=== PATIENT | male | born 1985 | race Caucasian/White ===

== ENCOUNTER 2020-03-12 20:18 | Inpatient (IN) | payer BC ==
[2020-03-12 20:37] VITALS: BMI 25.0
[2020-03-12] MEDS ORDERED: ACETAMINOPHEN 325 MG TABLET (FP) PO ONE (22:07)
[2020-03-12 22:33] LABS: BASO % 0.2 % (0-2.0); EOS % 0.3 % (0-4.5); HEMATOCRIT 44.3 % (35.4-49); HEMOGLOBIN 14.8 GM/dL (11.7-16.9); LYMPH % 6.5 % (8-40); MCH 27.2 pg (25.7-33.7); MCHC 33.3 g/dl (32.0-35.9); MEAN CELL VOLUME 81.6 fl (80-96); MEAN PLT VOLUME 8.7 fl (7.5-11.1); MONO % 4.8 % (3.8-10.2); NEUT % 88.2 % (42.8-82.8); PLATELET COUNT 265 K/MM3 (134-434); RBC 5.43 M/mm3 (4.00-5.60); RDW 13.2 % (11.9-15.9); WHITE BLOOD COUNT 15.2 K/mm3 (4.0-10.0)
[2020-03-12 22:35] LABS: URINE APPEARANCE CLEAR; URINE BILIRUBIN NEGATIVE (NEGATIVE); URINE COLOR YELLOW; URINE GLUCOSE (UA) NEGATIVE (NEGATIVE); URINE KETONE NEGATIVE (NEGATIVE); URINE LEUK ESTERASE NEGATIVE (NEGATIVE); URINE NITRITE NEGATIVE (NEGATIVE); URINE PROTEIN NEGATIVE (NEGATIVE)
[2020-03-12 22:44] LABS: INR 1.08 (0.83-1.09); PROTHROMBIN TIME (PATIENT) 13.2 SEC (9.7-13.0)
[2020-03-12 22:46] LABS: ACTIVATED PTT 28.6 SECONDS (25.2-36.5)
[2020-03-12 22:53] LABS: POTASSIUM 4.2 mmol/L (3.5-5.1)
[2020-03-12 22:55] LABS: ALBUMIN 4.5 g/dl (3.4-5.0); BLOOD UREA NITROGEN 14.5 mg/dL (7-18); CALCIUM 9.2 mg/dL (8.5-10.1)
[2020-03-12 22:59] LABS: CREATININE 0.9 mg/dL (0.55-1.3)
[2020-03-12 23:00] LABS: BILIRUBIN,TOTAL 0.8 mg/dL (0.2-1); TOT PROT 8.3 g/dl (6.4-8.2)
[2020-03-13] MEDS ORDERED: PIPERACILLIN/TAZOB 3.375 GM 3.375 GM in DEXTROSE 5%-WATER - 50 ML IVPB ONE (00:07)
[2020-03-13] MEDS ORDERED: PIPERACILLIN/TAZOB 3.375 GM 3.375 GM/50 ML BAG IVPB ONE (00:12)
[2020-03-13] MEDS ORDERED: LACTATED RINGERS SOLUTION 1,000 ML/1,000 ML INFUS.BAG IV SCH (02:30)
[2020-03-13 06:41] LABS: BASO % 0.3 % (0-2.0); EOS % 1.6 % (0-4.5); HEMATOCRIT 41.9 % (35.4-49); HEMOGLOBIN 14.3 GM/dL (11.7-16.9); LYMPH % 24.9 % (8-40); MCH 27.4 pg (25.7-33.7); MEAN CELL VOLUME 80.6 fl (80-96); MEAN PLT VOLUME 8.4 fl (7.5-11.1); MONO % 9.9 % (3.8-10.2); NEUT % 63.3 % (42.8-82.8); PLATELET COUNT 226 K/MM3 (134-434); RDW 12.7 % (11.9-15.9); WHITE BLOOD COUNT 10.3 K/mm3 (4.0-10.0)
[2020-03-13 06:42] LABS: POTASSIUM 4.2 mmol/L (3.5-5.1)
[2020-03-13 06:46] LABS: INR 1.14 (0.83-1.09)
[2020-03-13 06:48] LABS: ALBUMIN 3.8 g/dl (3.4-5.0); BLOOD UREA NITROGEN 11.9 mg/dL (7-18); CALCIUM 8.9 mg/dL (8.5-10.1); MAGNESIUM 2.1 mg/dL (1.8-2.4)
[2020-03-13 06:49] LABS: ACTIVATED PTT 30.5 SECONDS (25.2-36.5)
[2020-03-13 06:53] LABS: BILIRUBIN,TOTAL 1.2 mg/dL (0.2-1); TOT PROT 7.1 g/dl (6.4-8.2)
[2020-03-13] MEDS ORDERED: MIDAZOLAM HCL 2 MG/2 ML SINGLE DOSE VIAL ONE (11:55)
[2020-03-13] MEDS ORDERED: PROPOFOL 20 ML ONE (11:56)
[2020-03-13] MEDS ORDERED: ROCURONIUM BROMIDE 100 MG/10 ML VIAL ONE (11:56)
[2020-03-13] MEDS ORDERED: ceFAZolin 2 GRAM PREMIX BAG IVPB ONE (12:14)
[2020-03-13] MEDS ORDERED: BUPIVACAINE HCL/PF 0.5% (5 MG/ML) 30 ML VIAL IJ ONE ×2 (12:22)
[2020-03-13] MEDS ORDERED: ONDANSETRON 4 MG/2 ML VIAL ONE (12:34)
[2020-03-13] MEDS ORDERED: DEXAMETHASONE SOD PHOSPHATE 4 MG/1 ML VIAL ONE (12:34)
[2020-03-13] MEDS ORDERED: KETOROLAC TROMETHAMINE 30 MG/1 ML VIAL ONE (12:34)
[2020-03-13] MEDS ORDERED: NEOSTIGMINE METHYLSULFATE 0.5 MG/ML - 10 ML MDV ONE (12:35)
[2020-03-13] MEDS ORDERED: ONDANSETRON 4 MG/2 ML VIAL IVPUSH PRN (13:02)
[2020-03-13] MEDS ORDERED: oxyCODONE HCL 5 MG TABLET PO PRN (13:08)
[2020-03-13] MEDS ORDERED: LACTATED RINGERS SOLUTION 1,000 ML IV SCH ×2 (13:15→13:17)
[2020-03-13] MEDS ORDERED: ACETAMINOPHEN INJECTION 100 ML IVPB ONE (13:39)
[2020-03-13] MEDS: ACETAMINOPHEN 500 MG TABLET (FP) PO SCH ×2 (14:06→21:41)
[2020-03-13] MEDS ORDERED: KETOROLAC TROMETHAMINE 30 MG/1 ML VIAL IVPUSH PRN (21:00)
[2020-03-14] MEDS: ACETAMINOPHEN 500 MG TABLET (FP) PO SCH (05:05)
[2020-03-14 06:03] VITALS: BP 110/65; PULSE 76; TEMP 98.1
== END 2020-03-14 10:03 | disposition home or self-care (01) | DRG 343 ==
LOC: JER 20:18 → JERBED 03-13 00:09 → J7W 03-13 14:58
PROVIDERS: ADMIT Internal Medicine; ATTEND Internal Medicine
PROC: 0DTJ4ZZ Resection of Appendix, Percutaneous Endoscopic Approach (ICD-10-PCS; principal; 2020-03-13 12:00)
DX: K36 Other appendicitis (principal)
CPT/HCPCS: 36415; 74177-TC; 80053; 81003; 83735; 84100; 85025; 85610; 85730; 86850; 86900; 86901; 87086; 88304-TC; 93005; 93010; 94010; 94760; 99285-25; C9803; J0131; U0003